=== PATIENT | female | born 1945 | race Caucasian/White ===

== ENCOUNTER 2017-06-03 23:42 | Emergency (ER) | payer MEDICARE, BC ==
[2017-06-04 00:15] LABS: ALBUMIN 4.6 g/dL (3.5-5.0); ALKALINE PHOSPHATASE 129 U/L (38-126); ALT 31 U/L (9-52); AST 22 U/L (14-36); BILIRUBIN, DIRECT 0.2 mg/dL (0.0-0.4); BILIRUBIN, TOTAL 0.6 mg/dL (0.2-1.3); BLOOD UREA NITROGEN 17 mg/dL (7-17); CALCIUM 9.7 mg/dL (8.4-10.2); CHLORIDE 102 mmol/L (98-107); EST GLOMERULAR FILTRATION RATE > 60 mL/min; GLUCOSE 122 mg/dL (70-100); LIPASE 56 U/L (23-300); SODIUM 142 mmol/L (137-145); TOTAL PROTEIN 7.4 g/dL (6.3-8.2)
[2017-06-04] MEDS ORDERED: ONDANSETRON HCL 4 MG/2 ML VIAL ONE ×2 (00:18→00:37)
[2017-06-04 00:22] LABS: WHITE BLOOD COUNT 9.2 X 10^3uL (3.9-10.7)
[2017-06-04 00:24] LABS: BASOPHILS 0.6 % (0.0-2.0); EOSINOPHILS 1.2 % (0.0-6.0); HEMATOCRIT 47.4 % (36.0-48.0); HEMOGLOBIN 16.3 g/dL (12.0-16.0); LYMPHOCYTES 3.7 % (20.0-40.0); MEAN CORPUS. HGB CONCENTRATION 34.4 g/dL (32.0-36.0); MEAN CORPUSCULAR HEMOGLOBIN 32.3 pg (29.0-35.0); MEAN PLATELET VOLUME 7.4 fL (7.4-10.4); PLATELET COUNT 265 X 10^3uL (130-440); RED BLOOD COUNT 5.05 X 10^6uL (4.20-6.10)
[2017-06-04 00:25] LABS: BASOPHIL# 0.1 X 10^3uL (0.0-0.1); EOSINOPHILS# 0.1 X 10^3uL (0.0-0.4); LYMPHOCYTES# 0.3 X 10^3uL (0.8-3.8); MONOCYTES# 0.4 X 10^3uL (0.2-1.0); NEUTROPHILS 90.5 % (54.0-75.0); NEUTROPHILS# 8.3 X 10^3uL (2.6-6.7)
[2017-06-04 00:27] LABS: TROPONIN I < 0.012 ng/mL (0.00-0.034)
--- NOTE | 2017-06-04 01:04 | CT REPORT ---
HISTORY: Abdominal pain with nausea and vomiting. COMPARISON: None. TECHNIQUE: This examination was performed using automated exposure control, adjustment of mA or kV according to patient size, and/or use of iterative reconstruction technique. Multiple contiguous axial images were obtained from the lung bases through the pubic symphysis following administration of intravenous con trast. FINDINGS: The visualized lung parenchyma and cardiac structures are unremarkable. Abdomen/pelvis: The liver is normal in appearance without a mass or evidence of intrahepatic ductal d ilatation. The gallbladder is unremarkable, there is no cholelithiasis or pericholecystic fluid. Th e spleen is normal in appearance. There is no pancreatic mass or ductal dilatation. The adrenal glands are unremarkable. The right an d left kidneys are normal in appearance. No mass or hydronephrosis is noted. A simple cyst is noted in the right kidney. There are nondistended fluid-filled loops of small bowel. Fluid is also seen in the patulous a sendin g colon. Formed stools are noted throughout the remainder of the colon. No pericolonic inflammatory c hanges are seen. There is no bowel obstruction. The appendix is normal well-visualized. No significa nt free fluid is noted. There is no mesenteric edema or inflammatory process. There is mild atherosclerosis of the abdominal aorta and branch vessels. No pathologic adenopathy is identified. No suspicious bony lesions are s een. IMPRESSION: Nondistended fluid-filled loops of small and large bowel which may be secondary to enteritis in the [facility]. Final Electronic Signature: This report was electronically signed by Valerie Delgado MD on 06/04/2017 1:02 AM. [email or web address] / / [facility] [phone]
--- NOTE | 2017-06-04 01:32 | ER NURSING DOCUMENTATION ---
Nurse's Notes [facility] Name:Tati Webb Age:72 yrs Sex:Female :1945 Arrival Date:06/03/2017 Time:23:42 BedTrauma-C Private MD:Talia Flanagan Diagnosis:Abdominal Pain, Epigastric Presentation: 06/03 23:50 Presenting complaint: Patient states: she has had abdominal pain x 6 hours with bw2 vomiting. pt states she took nitro because she was having chest discomfort. pt has had pervious ND. Transition of care: Home. 23:50 Acuity: KAHLIDA 2 bw2 23:50 Method Of Arrival: Walk In 2 Triage Assessment: 23:52 General: Appears in no apparent distress, Behavior is anxious, appropriate for age, bw2 cooperative. Pain: Complains of pain in lower abdomen Pain began 6 hours ago. GI: Reports lower abdominal pain, vomiting. Historical: - Allergies: No known drug Allergies; No known drug Allergies; - PMHx: HYPERTENSION; CAD; ARTHRITIS; - Tetanus: < 10 years. - Ebola Screening: : Patient negative for fever greater than or equal to 101.5 degrees Fahrenheit, and additional compatible Ebola Virus Disease symptoms. Patient denies exposure to infectious person. Patient denies travel to an Ebola-affected area in the 21 days before illness onset. No symptoms or risks identified at this time. . - Immunization history: Flu Vaccine < 1 year. - Social history: Smoking status: Patient states was never smoker of tobacco. Screenin:55 Infectious Disease Risk None. Abuse screen: Denies threats or abuse. Nutritional bw2 screening: No deficits noted. Assessment: 23:54 See Triage Assessment done by same RN. GI: Abdomen is flat. bw2 23:54 Respiratory: Breath sounds are clear bilaterally. 2 Vital Signs: 23:53 BP 134 / 74; Pulse 104; Resp 18; Temp 98(T); Pulse Ox 94% on R/A; Weight 68.04 kg; bw2 Height 5 ft. 4 in. (162.56 cm); Pain 5/; 06/04 01:30 BP 144 / 52; Pulse 65; Resp 18; Pulse Ox 95% on R/A; bw2 06/03 23:53 Body Mass Index 25.75 (68.04 kg, 162.56 cm) 2 ED Course: 06/03 23:43 Patient arrived in ED. em2 23:43 Talia Flanagan is Private Physician. em2 23:48 EKG done. (by ED staff). em1 23:49 Scott Gustafson MD is Attending Physician. tl1 23:50 Taylor Rowe is Primary Nurse. bw2 23:52 Triage completed. bw2 23:55 Valuables Remains with patient Patient has correct armband on for positive bw2 identification. Placed in gown. Side rails up X2. alarm security or surveillance monitor on. Pulse ox on. NIBP on. 23:55 Inserted peripheral IV: 18 gauge in right forearm and blood collected. bw2 06/04 00:[address] tal 00:[address] from [address]. tal 01:15 Talia Flanagan is Referral Physician. tl1 Administered Medications: 00:10 Drug: Zofran 4 mg; Route: IVP; Infused Over: 2 mins; Site: right forearm; bw2 00:27 Follow up: Response: Nausea is decreased bw2 00:10 Drug: Dilaudid 0.5 mg; Route: IVP; Site: right forearm; bw2 00:27 Follow up: Response: Pain is decreased bw2 00:11 Drug: NS 0.9% 1000 ml; Route: IV; Rate: bolus; Site: right forearm; bw2 01:09 Follow up: IV Status: Completed infusion bw2 Outcome: 01:15 Discharge ordered by . tl1 01:30 Discharged to home ambulatory, with significant other. bw2 01:30 Condition: good 01:30 Discharge Assessment: Patient awake, alert and oriented x 3. No cognitive and/or functional deficits noted. Patient verbalized understanding of disposition instructions. 01:30 Discharge instructions given to patient, significant other, Instructed on discharge instructions, follow up and referral plans. Demonstrated understanding of instructions, Prescriptions given X 1. 01:31 Patient left the ED. bw2 16:28 Discharge F/U Call: Spoke with: other: Name: Pt's partner, who reports pt is doing tg much better today. Signatures: José Moreno RN RN tg Shahnaz Smart Meinking-tech, Lynnette-tech em1 Meijohanna-reg, Lynnette-reg em2 Janay, Scott, MD MD tl1 Wisely, Taylor bw2
--- NOTE | 2017-06-04 01:32 | ER PHYSICIAN DOCUMENTATION ---
Physician Documentation [facility] Name:Tati Webb Age:72 yrs Sex:Female :1945 Arrival Date:06/03/2017 Time:23:42 BedTrauma-C Private MD:Talia Flanagan ED, Tom Disposition: 06/04 03:56 Chart complete. tl1 Disposition: 06/04/17 01:15 Discharged to Home/Self Care. Impression: Abdominal Pain, Epigastric. - Condition is Good. - Discharge Instructions: ABDOMINAL PAIN, Unknown Cause, (Female). - Prescriptions for Zofran 4 mg Oral Tablet - take 1-2 tablet by ORAL route every 4-6 hours As needed; 10 tablet. - Medical Reconciliation form form. - Follow up: Talia Flanagan; When: 2 - 3 days; Reason: Recheck today's complaints, Continuance of care. - Problem is new. - Symptoms have improved. - Notes: NO OBVIOUS WORRISOME CAUSE OF YOUR ABDOMINAL PAIN NOW. YOU COULD HAVE AN EARLY GASTROENTERITIS ("STOMACH FLU") AND DEVELOP DIARRHEA SOON. OK TO TAKE IMMODIUM IF YOU HAVE DIARRHEA, BUT YOU SHOULD AVOID IMMODIUM IF YOU ARE HAVING SEVERE PAIN, FEVER OR BLOOD IN YOUR STOOL. HPI: 06/03 23:49 This 72 yrs old Female presents to ER with complaints of ABDOMINAL PAIN. tl1 06/04 00:06 The patient presents with abdominal pain. Onset: The symptoms/episode began/occurred tl1 suddenly, 6 hour(s) ago, at 18:00. The symptoms do not radiate. Associated signs and symptoms: Pertinent positives: nausea, vomiting, Pertinent negatives: anorexia, chest pain, diarrhea, dysuria, fever, hematuria, vomiting blood. The symptoms are described as crampy, sharp. Modifying factors: The symptoms are alleviated by nothing, the symptoms are aggravated by nothing. Severity of pain: At its worst the pain was moderate in the emergency department the pain is unchanged. The patient has not experienced similar symptoms in the past. She had a baked potato with some butter on it at 5-5:30. At about 6:00, while driving she had the abrupt onset of crampy epigastric pain with nausea and, over the last 5-6 hours, 4 episodes of vomiting. No prior abdominal surgeries. No diarrhea. She is passing flatus. Does not now have an appetite. Pain doesn't radiate anywhere. No h/o EtOH abuse. No melena, hematochezia or hematemesis.. Historical: - Allergies: No known drug Allergies; No known drug Allergies; - PMHx: HYPERTENSION; CAD; ARTHRITIS; - Tetanus: < 10 years. - Ebola Screening: : Patient negative for fever greater than or equal to 101.5 degrees Fahrenheit, and additional compatible Ebola Virus Disease symptoms. Patient denies exposure to infectious person. Patient denies travel to an Ebola-affected area in the 21 days before illness onset. No symptoms or risks identified at this time. . - Immunization history: Flu Vaccine < 1 year. - Social history: Smoking status: Patient states was never smoker of tobacco. ROS: 00:21 Abdomen/GI: Positive for abdominal pain, nausea, vomiting, abdominal cramps. tl1 00:21 All other systems are negative. Exam: 00:22 Constitutional: The patient appears alert, awake, comfortable, non-diaphoretic, tl1 non-toxic, well developed, well hydrated, well groomed, well nourished, anxious, in obvious distress, mildly distressed. 00:22 Head/face: Exam is negative for acute changes. 00:22 Eyes: Exam is negative for acute changes. 00:22 Cardiovascular: Rate: normal, Rhythm: regular, Heart sounds: normal. 00:22 Respiratory: the patient does not display signs of respiratory distress, Respirations: normal, Breath sounds: are normal. 00:22 Abdomen/GI: Inspection: abdomen appears normal, Bowel sounds: diminished, Palpation: soft, mild abdominal tenderness, in the right upper quadrant and right lower quadrant, rebound tenderness, is not appreciated, voluntary guarding, is not appreciated, involuntary guarding, is not appreciated, no appreciated organomegaly. 00:22 : CVA tenderness, is absent. 00:22 Musculoskeletal/extremity: Extremities: all appear grossly normal, with no appreciated pain with palpation. 00:22 Skin: Exam negative for acute changes. 00:22 Neuro: Exam negative for acute changes. Vital Signs: 06/03 23:53 BP 134 / 74; Pulse 104; Resp 18; Temp 98(T); Pulse Ox 94% on R/A; Weight 68.04 kg; bw2 Height 5 ft. 4 in. (162.56 cm); Pain 5/10; 06/04 01:30 BP 144 / 52; Pulse 65; Resp 18; Pulse Ox 95% on R/A; bw2 06/03 23:53 Body Mass Index 25.75 (68.04 kg, 162.56 cm) bw2 MDM: 06/03 23:49 Patient medically screened. tl1 06/04 00:26 Data reviewed: vital signs, nurses notes, old medical records, lab test result(s), tl1 amylase and lipase, cardiac enzymes, CBC, electrolytes, hepatic panel, urinalysis, EKG, radiologic studies, CT scan. ECG:. 00:30 Differential diagnosis: AAA, appendicitis, bowel obstruction, cholecystitis, tl1 Cholelithiasis, diverticulitis, gastritis, Hepatitis, sympomatic leaking abdominal aortic aneurysm, Mesenteric ischemia or infarction, myocardia ischemia or infarction, non-specific abd pain, pancreatitis, Peptic Ulcer Disease. Data reviewed: and as a result, I will discharge patient. Counseling: I had a detailed discussion with the patient and/or guardian regarding: the historical points, exam findings, and any diagnostic results supporting the discharge/admit diagnosis, lab results, radiology results, the need for outpatient follow up, for a recheck, to return to the emergency department if symptoms worsen or persist or if there are any questions or concerns that arise at home. Response to treatment: the patient's symptoms have markedly improved after treatment, and as a result, I will. Special discussion: There is a large amount of fluid in the small bowel and the ascending colon, which could portend some diarrhea. She does not appear to have a worrisome emergency medical condition at this time.. ED course: She felt much improved at the time of d/c with minimal pain and no nausea.. 06/04 00:17 Order name: BASIC METABOLIC PANEL; Complete Time: 01: EDMS 06/04 00:24 Interpretation: SODIUM 142; POTASSIUM 4.0; CHLORIDE 102; CARBON DIOXIDE 21; GLUCOSE tl1 122; BLOOD UREA NITROGEN 17; CREATININE 0.8; CALCIUM 9.7. 06/04 00:17 Order name: HEPATIC PANEL; Complete Time: 01: EDMS 06/04 00:24 Interpretation: ALT 31; ALBUMIN 4.6; ALKALINE PHOSPHATASE 129; AST 22; BILIRUBIN, TOTAL tl1 0.6; BILIRUBIN, DIRECT 0.2; TOTAL PROTEIN 7.4. 06/04 00:17 Order name: LIPASE; Complete Time: 01:00 EDMS 06/04 00:25 Interpretation: Normal: LIPASE 56. tl1 06/04 00:26 Order name: CBC AUTO DIF, MDIF/RMOR IF IND; Complete Time: 01:00 EDMS 06/04 00:28 Order name: TROPONIN I; Complete Time: 01:00 EDMS 06/04 01:00 Interpretation: Normal: TROPONIN I < 0.012. tl1 06/04 01:06 Order name: CAT SCAN; ABD/PEL W [id number] EDMS 06/03 23:57 Order name: NPO; Complete Time: 00:11 tl1 EC/24 23:48 Rate is 102 beats/min. Rhythm is regular. [place] interval is normal at 152 msec. QRS tl1 interval is normal at 77 msec. QT interval is normal at 463 msec. Q waves are Present in leads III, aVF, V1. T waves are Normal. No ST changes noted. 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 Dispensed Medications: 06/04 00:10 Drug: Zofran 4 mg; Route: IVP; Infused Over: 2 mins; Site: right forearm; bw2 00:27 Follow up: Response: Nausea is decreased bw2 00:10 Drug: Dilaudid 0.5 mg; Route: IVP; Site: right forearm; bw2 00:27 Follow up: Response: Pain is decreased bw2 00:11 Drug: NS 0.9% 1000 ml; Route: IV; Rate: bolus; Site: right forearm; bw2 01:09 Follow up: IV Status: Completed infusion bw2 Signatures: Scott Gustafson MD MD tl1 Taylor Rowe bw2
== END 2017-06-04 01:32 | disposition home or self-care (01) ==
LOC: ER 23:42
DX: R10.13 Epigastric pain (principal); R11.2 Nausea with vomiting, unspecified; R10.31 Right lower quadrant pain; R10.32 Left lower quadrant pain; I25.2 Old myocardial infarction; I10 Essential (primary) hypertension; I25.10 Atherosclerotic heart disease of native coronary artery without angina pectoris
CPT/HCPCS: 74177; 80048; 80076; 83690; 84484; 85025; 93005; 96361; 96374; 96375; 99284; 99285; J1170; J2405